=== PATIENT | female | born 1985 | race Caucasian/White ===

== ENCOUNTER 2019-04-03 13:21 | Inpatient (IN) | payer OTHER ==
[2019-04-03 16:24] VITALS: BMI 30.5
--- NOTE | 2019-04-03 18:02 | HP ---
CIWA Score - Admission Criteria OASAS Guidelines: Admission for Medically Managed Detox: Requires at least one of the followin. CIWA greater than 12 2. Seizures within the past 24 hours 3. Delirium tremens within the past 24 hours 4. Hallucinations within the past 24 hours 5. Acute intervention needed for co occurring medical disorder 6. Acute intervention needed for co occurring psychiatric disorder 7. Severe withdrawal that cannot be handled at a lower level of care (continued vomiting, continued diarrhea, abnormal vital signs) requiring intravenous medication and/or fluids 8. Admission ROS S - HPI Allergies/Adverse Reactions: Allergies Allergy/AdvReac Type Severity Reaction Status Date / Time eletriptan [From Relpax] Allergy Severe Elevated Verified 04/03/19 16:09 Blood Pressure haloperidol [From Haldol] Allergy Severe Elevated Verified 04/03/19 16:09 Blood Pressure zolpidem [From Ambien] Allergy Severe Elevated Verified 04/03/19 16:09 Blood Pressure - Ebola screening Have you traveled outside of the country in the last 21 days: No (NN) Have you had contact with anyone from an Ebola affected area: No Patient History - Substances abused Crack Substance route: Inhalation Frequency: No use in 30 days Amount used: ' can't remember'. Age of first use: 33 Date of last use: 04/02/19 Heroin Substance route: Inhalation Frequency: No use in 30 days Amount used: ' I don't recall' Age of first use: 21 Date of last use: 04/02/19 Alcohol Substance route: Oral Frequency: No use in 30 days Amount used: past 2 days only/ unknown amount. Age of first use: 12 Date of last use: 04/02/19 Admission Physical Exam [facility] - Vital Signs Vital Signs: Vital Signs - 24 hr 04/03/19 16:13 Temperature 97 F L Pulse Rate 79 Respiratory 18 Rate Blood Pressure 157/102 H Breathalyzer - Breathalyzer Breathalyzer: 0 Urine Drug Screen - Test Device Lot number: [id number] Expiration date: 10/18/20 - Control Is test valid?: Yes - Results Drug screen NEGATIVE: No Urine drug screen results: CT-Cocaine
--- NOTE | 2019-04-03 20:47 | HP ---
CIWA Score - Admission Criteria OASAS Guidelines: Admission for Medically Managed Detox: Requires at least one of the followin. CIWA greater than 12 2. Seizures within the past 24 hours 3. Delirium tremens within the past 24 hours 4. Hallucinations within the past 24 hours 5. Acute intervention needed for co occurring medical disorder 6. Acute intervention needed for co occurring psychiatric disorder 7. Severe withdrawal that cannot be handled at a lower level of care (continued vomiting, continued diarrhea, abnormal vital signs) requiring intravenous medication and/or fluids 8. Admission ROS S - HPI Chief Complaint: Seeking admission to Rehab. Allergies/Adverse Reactions: Allergies Allergy/AdvReac Type Severity Reaction Status Date / Time eletriptan [From Relpax] Allergy Severe Elevated Verified 04/03/19 16:09 Blood Pressure haloperidol [From Haldol] Allergy Severe Elevated Verified 04/03/19 16:09 Blood Pressure zolpidem [From Ambien] Allergy Severe Elevated Verified 04/03/19 16:09 Blood Pressure History of Present Illness: 34 years old female with 13 years of opioid dependence, 23 years of alcohol dependence and cocaine dependence is seeking admission to Rehab. Patient has been to prior Rehab., last at [facility] and this is her first admission to [facility]. She has medical history of asthma, Diabetes Type 2, hypertension, GERD and psych. history of Bipolar disorder and personality disorder. She denies suicide attempt and suicidal ideation at this time. Exam Limitations: No Limitations - Ebola screening Have you traveled outside of the country in the last 21 days: No (NN) Have you had contact with anyone from an Ebola affected area: No Do you have a fever: No - Review of Systems Constitutional: No Symptoms Reported EENT: reports: No Symptoms Reported Respiratory: reports: No Symptoms reported Cardiac: reports: No Symptoms Reported GI: reports: No Symptoms Reported : reports: No Symptoms Reported Musculoskeletal: reports: No Symptoms Reported Integumentary: reports: No Symptoms Reported Neuro: reports: No Symptoms reported Endocrine: reports: No Symptoms Reported Hematology: reports: No Symptoms Reported Psychiatric: reports: Mood/Affect Appropiate, Orientated x3 Other Systems: Reviewed and Negative Patient History - Patient Medical History Hx Anemia: No Hx Asthma: No Hx Chronic Obstructive Pulmonary Disease (COPD): No Hx Cancer: No Hx Cardiac Disorders: No Hx Congestive Heart Failure: No Hx Hypertension: Yes (Lisinopril) Hx Hypercholesterolemia: No Hx Pacemaker: No HX Cerebrovascular Accident: No Hx Seizures: No Hx Dementia: No Hx Diabetes: Yes (Metformin) Hx Gastrointestinal Disorders: Yes (GERD - Not on medication) Hx Liver Disease: No Hx Genitourinary Disorders: No Hx Sexually Transmitted Disorders: No Hx Renal Disease (ESRD): No Hx Thyroid Disease: No Hx Human Immunodeficiency Virus (HIV): No (Negative 2020) Hx Hepatitis C: No Hx Depression: No Hx Suicide Attempt: No Hx Bipolar Disorder: Yes (Depakote) Hx Schizophrenia: No Other Medical History: Personality disorder - Patient Surgical History Past Surgical History: Yes - PPD History Previous Implant?: Yes Documented Results: Negative w/proof Implanted On Prior [facility] Admission?: No PPD to be Administered?: Yes - Reproductive History Patient is a Female of Child Bearing Age (11 -55 yrs old): Yes Last Menstrual Period: 02/17/19 - Smoking Cessation Smoking history: Current every day smoker Have you smoked in the past 12 months: Yes Aproximately how many cigarettes per day: 20 Hx Chewing Tobacco Use: No Initiated information on smoking cessation: Yes 'Breaking Loose' booklet given: 04/03/19 - Substance & Tx. History Hx Alcohol Use: Yes Hx Substance Use: Yes Substance Use Type: Alcohol, Cocaine, Opiates Hx Substance Use Treatment: Yes ([facility] ) - Substances abused Crack Substance route: Inhalation Frequency: No use in 30 days Amount used: ' can't remember'. Age of first use: 33 Date of last use: 04/02/19 Heroin Substance route: Inhalation Frequency: No use in 30 days Amount used: ' I don't recall' Age of first use: 21 Date of last use: 04/02/19 Alcohol Substance route: Oral Frequency: No use in 30 days Amount used: past 2 days only/ unknown amount. Age of first use: 12 Date of last use: 04/02/19 Admission Physical Exam [facility] - Vital Signs Vital Signs: Vital Signs - 24 hr 04/03/19 16:13 Temperature 97 F L Pulse Rate 79 Respiratory 18 Rate Blood Pressure 157/102 H - Physical General Appearance: Yes: Within Normal Limits HEENTM: Yes: Within Normal Limits Respiratory: Yes: Lungs Clear, Normal Breath Sounds, No Respiratory Distress Neck: Yes: Supple Breast: Yes: Breast Exam Deferred Cardiology: Yes: Regular Rhythm, Regular Rate Abdominal: Yes: Within Normal Limits Genitourinary: Yes: Within Normal Limits Back: Yes: Normal Inspection Musculoskeletal: Yes: Within Normal Limits Extremities: Yes: Normal Inspection Neurological: Yes: Within Normal Limits Integumentary: Yes: Warm Lymphatic: Yes: Within Normal Limits - Diagnostic (1) Alcohol dependence Current Visit: Yes Status: Acute (2) Cocaine dependence Current Visit: Yes Status: Acute (3) Opioid dependence Current Visit: Yes Status: Acute (4) Nicotine dependence Current Visit: Yes Status: Acute (5) GERD (gastroesophageal reflux disease) Current Visit: Yes Status: Acute (6) Type 2 diabetes mellitus without complications Current Visit: Yes Status: Acute (7) Personality disorder Current Visit: Yes Status: Acute (8) Bipolar disorder Current Visit: Yes Status: Acute Cleared for Admission [facility] - Detox or Rehab [facility] Level of Care: Observation Bed Claeared for Rehab Admission: Yes Breathalyzer - Breathalyzer Breathalyzer: 0 Urine Drug Screen - Test Device Lot number: [id number] Expiration date: 10/18/20 - Control Is test valid?: Yes - Results Drug screen NEGATIVE: No Urine drug screen results: CT-Cocaine Inpatient Rehab Admission - Rehab Decision to Admit Inpatient rehab admission?: Yes - Initial Determination Are CD services needed?: No Free of communicable disease: Yes Not in need of hospitalization: Yes - Rehab Admission Criteria Previous failed treatment: Yes Poor recovery environment: Yes Comorbidities: Yes Lacks judgement: No Patient is meeting Inpatient Rehab admission criteria:: Yes
[2019-04-03] MEDS ORDERED: ACETAMINOPHEN 325 MG TABLET (FP) PO PRN (21:09)
[2019-04-03] MEDS ORDERED: MAG HYDROX/AL HYDROX/SIMETH 30 ML UNIT-DOSE CUP PO PRN (21:09)
[2019-04-03] MEDS ORDERED: NICOTINE POLACRILEX 2 MG GUM BUC PRN (21:09)
[2019-04-03] MEDS ORDERED: MENTHOL/PHENOL 1 EACH UD MM PRN (21:09)
[2019-04-03] MEDS ORDERED: P-EPHED 60MG/TRIPROLIDI 2.5MG TABLET PO PRN (21:09)
[2019-04-03] MEDS ORDERED: MAGNESIUM CITRATE 300 ML BOTTLE PO PRN (21:09)
[2019-04-03] MEDS ORDERED: MAGNESIUM HYDROX 2400MG/30ML ORAL SUSPENSION 30 ML CUP PO PRN (21:09)
[2019-04-03] MEDS ORDERED: IBUPROFEN 400 MG TABLET (FP) PO PRN (21:09)
[2019-04-03] MEDS ORDERED: LOPERAMIDE HCL 2 MG CAPSULE PO PRN (21:09)
[2019-04-03] MEDS ORDERED: guaiFENesin 200 MG/10 ML 10 ML UNIT-DOSE CUPS PO PRN (21:09)
[2019-04-03] MEDS ORDERED: MELATONIN 5 MG TABLETS PO PRN (22:00)
[2019-04-03] MEDS ORDERED: THIAMINE HCL 100 MG TABLET (FP) PO SCH (22:00)
[2019-04-03] MEDS ORDERED: TUBERCULIN PPD 5 TU/0.1ML VIAL ID ONE (22:23)
[2019-04-03 23:24] VITALS: BP 119/78; PULSE 68; TEMP 97.7
[2019-04-04] MEDS ORDERED: PRENATAL VITAMINS W/ FOLIC ACID TABLET (FP) PO SCH (10:00)
[2019-04-04] MEDS ORDERED: LISINOPRIL 10 MG TABLET (FP) PO SCH (10:00)
[2019-04-04] MEDS ORDERED: NICOTINE 14 MG/24 HOURS TOPICAL PATCH TD SCH (10:00)
--- NOTE | 2019-04-04 10:07 | EKG ---
Test Reason : Blood Pressure : / mmHG Vent. Rate : 060 BPM Atrial Rate : 060 BPM P-R Int : 156 ms QRS Dur : 098 ms QT Int : 436 ms P-R-T Axes : 014 012 037 degrees QTc Int : 436 ms NORMAL SINUS RHYTHM NORMAL ECG NO PREVIOUS ECGS AVAILABLE Confirmed by SIDDHARTH PECK MD ([id number]) on 04/04/2019 10:07:03 AM Referred By: Confirmed By:SIDDHARTH PECK MD
[2019-04-04 11:53] LABS: HEMATOCRIT 38.1 % (32.4-45.2); MCH 30.5 pg (25.7-33.7); MCHC 34.2 g/dl (32.0-36.0); MEAN CELL VOLUME 89.4 fl (80-96); MEAN PLT VOLUME 7.9 fl (7.5-11.1); PLATELET COUNT 228 K/MM3 (134-434); RBC 4.26 M/mm3 (3.60-5.2); RDW 13.2 % (11.6-15.6); WHITE BLOOD COUNT 6.9 K/mm3 (4.0-10.0)
[2019-04-04 12:08] LABS: ALBUMIN 3.4 g/dl (3.4-5.0); BILIRUBIN,TOTAL 0.3 mg/dL (0.2-1); BLOOD UREA NITROGEN 11.5 mg/dL (7-18); CALCIUM 8.8 mg/dL (8.5-10.1); CREATININE 0.7 mg/dL (0.55-1.3); POTASSIUM 4.3 mmol/L (3.5-5.1); TOT PROT 5.9 g/dl (6.4-8.2)
--- NOTE | 2019-04-04 14:29 | DS ---
[facility] Rehab Discharge Summary - [facility] Rehab Discharge Summary Admission Date: 04/03/19 Discharge Date: 04/04/19 - History Present History: Alcohol dependence, Cocaine dependence Additional Comments: Pt is a 34 y/o female with a hx of FLORIN admitted to rehab and declined to stay in treatment. Pt reports she has a primary care provider at [facility]. Pertinent Past History: HTN DM GERD Bipolar Disorder - Discharge Physical Exam Vital Signs: Vital Signs Temperature 97.7 F 04/03/19 22:25 Pulse Rate 68 04/03/19 22:25 Respiratory Rate 18 04/04/19 07:03 Blood Pressure 119/78 04/03/19 22:25 O2 Sat by Pulse Oximetry (%) Pt declined PE Alert o x 3 nad oob ambulating with steady gait Pertinent Admission Physical Exam Findings: Laboratory Tests 04/03/19 04/04/19 04/04/19 17:37 09:00 09:00 WBC 6.9 RBC 4.26 Hgb 13.0 Hct 38.1 MCV 89.4 MCH 30.5 MCHC 34.2 RDW 13.2 Plt Count 228 MPV 7.9 Sodium 140 Potassium 4.3 Chloride 108 H Carbon Dioxide 30 Anion Gap 2 L BUN 11.5 Creatinine 0.7 Est GFR (CKD-EPI)AfAm 131.94 Est GFR (CKD-EPI)NonAf 113.84 Random Glucose 200 H Calcium 8.8 Total Bilirubin 0.3 AST 9 L ALT 16 Alkaline Phosphatase 112 Total Protein 5.9 L Albumin 3.4 POC Urine HCG, Qual Negative RPR Titer 04/04/19 09:00 WBC RBC Hgb Hct MCV MCH MCHC RDW Plt Count MPV Sodium Potassium Chloride Carbon Dioxide Anion Gap BUN Creatinine Est GFR (CKD-EPI)AfAm Est GFR (CKD-EPI)NonAf Random Glucose Calcium Total Bilirubin AST ALT Alkaline Phosphatase Total Protein Albumin POC Urine HCG, Qual RPR Titer Nonreactive - Treatment Discharge Condition: Discharge condition good Hospital Course: Pt was admitted late on 04/03/19 and declined to continue with rehab today, . Pt requests to sign herself out. Pt unable to engage in rehab treatment. - Medication Discharge Medications: Ambulatory Orders Benztropine Mesylate [Cogentin -] 1 mg PO TID 04/03/19 Buspirone HCl [Buspar -] 15 mg PO BID 04/03/19 Divalproex *ER* [Depakote *ER* -] 500 mg PO BID 04/03/19 Gabapentin [Neurontin -] 100 mg PO TID 04/03/19 Insulin (Novolog) [Novolog -] 1 units SCJ 04/03/19 Lisinopril 10 mg PO DAILY 04/03/19 Albuterol Sulfate Inhaler - [Ventolin Hfa Inhaler -] 2 inh PO Q4H 04/04/19 - Medication-Assisted Treatment (MAT) Medication-Assisted Treatment (MAT): No - Discharge Instructions Diet, activity, other medical instructions: Diet:CLARA Activity: oob ad garcía Other medical instructions:follow up with your primary care provider at [facility] for medical management within 1 week. - Diagnosis (1) Alcohol dependence Current Visit: Yes Status: Chronic Qualifiers: Substance use status: uncomplicated Qualified Code(s): F10.20 - Alcohol dependence, uncomplicated (2) Cocaine dependence Current Visit: Yes Status: Chronic Qualifiers: Substance use status: uncomplicated Qualified Code(s): F14.20 - Cocaine dependence, uncomplicated (3) GERD (gastroesophageal reflux disease) Current Visit: Yes Status: Chronic (4) Nicotine dependence Current Visit: Yes Status: Chronic Qualifiers: Nicotine product type: cigarettes Substance use status: uncomplicated Qualified Code(s): F17.210 - Nicotine dependence, cigarettes, uncomplicated (5) Type 2 diabetes mellitus without complications Current Visit: Yes Status: Chronic Qualifiers: Diabetes mellitus assisted insulin use: unspecified 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
--- NOTE | 2019-04-04 14:40 | PN ---
[facility] Progress Note Note: Addendum:Pt was approached earlier this morning to see her for new pt encounter but patient refused to be seen and walked away. All efforts to engage the patient was unsuccessful as patient ignored inspector automatic typewriter's effort to find out when patient prefers provider to come back for new patient assessment. Vital Signs - 24 hr 04/03/19 04/03/19 04/04/19 16:13 22:25 00:30 Temperature 97 F L 97.7 F Pulse Rate 79 68 Respiratory 18 18 18 Rate Blood Pressure 157/102 H 119/78 04/04/19 04/04/19 03:30 07:03 Temperature Pulse Rate Respiratory 18 18 Rate Blood Pressure Laboratory Tests 04/03/19 04/04/19 04/04/19 17:37 09:00 09:00 WBC 6.9 RBC 4.26 Hgb 13.0 Hct 38.1 MCV 89.4 MCH 30.5 MCHC 34.2 RDW 13.2 Plt Count 228 MPV 7.9 Sodium 140 Potassium 4.3 Chloride 108 H Carbon Dioxide 30 Anion Gap 2 L BUN 11.5 Creatinine 0.7 Est GFR (CKD-EPI)AfAm 131.94 Est GFR (CKD-EPI)NonAf 113.84 Random Glucose 200 H Calcium 8.8 Total Bilirubin 0.3 AST 9 L ALT 16 Alkaline Phosphatase 112 Total Protein 5.9 L Albumin 3.4 POC Urine HCG, Qual Negative RPR Titer 04/04/19 09:00 WBC RBC Hgb Hct MCV MCH MCHC RDW Plt Count MPV Sodium Potassium Chloride Carbon Dioxide Anion Gap BUN Creatinine Est GFR (CKD-EPI)AfAm Est GFR (CKD-EPI)NonAf Random Glucose Calcium Total Bilirubin AST ALT Alkaline Phosphatase Total Protein Albumin POC Urine HCG, Qual RPR Titer Nonreactive Alert o x 3, no s/h/i verbalized. nad oob ambulating with steady gait.
== END 2019-04-04 14:42 | disposition left against medical advice (07) | DRG 770 ==
LOC: YASAS 13:21 → Y3E 21:54
PROVIDERS: ADMIT Neuromusculoskeletal Medicine & OMM; ATTEND Neuromusculoskeletal Medicine & OMM
PROC: HZ42ZZZ Group Counseling for Substance Abuse Treatment, Cognitive-Behavioral (ICD-10-PCS; principal; 2019-04-03)
DX: F10.20 Alcohol dependence, uncomplicated (principal); F11.20 Opioid dependence, uncomplicated; F14.20 Cocaine dependence, uncomplicated; F17.210 Nicotine dependence, cigarettes, uncomplicated; F31.9 Bipolar disorder, unspecified; F60.9 Personality disorder, unspecified; I10 Essential (primary) hypertension; E11.9 Type 2 diabetes mellitus without complications; Z79.4 Long term (current) use of insulin; K21.9 Gastro-esophageal reflux disease without esophagitis; Z88.8 Allergy status to other drugs, medicaments and biological substances
CPT/HCPCS: 36415; 80053; 81025; 85027; 86593; 93005; 93010

== ENCOUNTER 2020-09-03 19:02 | Inpatient (IN) | payer OTHER ==
[2020-09-03 20:34] VITALS: BMI 28.3
[2020-09-03] MEDS ORDERED: IBUPROFEN 400 MG TABLET (FP) PO PRN (21:35)
[2020-09-03] MEDS ORDERED: MAG HYDROX/AL HYDROX/SIMETH 30 ML UNIT-DOSE CUP PO PRN (21:35)
[2020-09-03] MEDS ORDERED: MENTHOL/PHENOL 1 EACH UD MM PRN (21:35)
[2020-09-03] MEDS ORDERED: ONDANSETRON *ODT* 4 MG TABLET SL PRN (21:35)
[2020-09-03] MEDS ORDERED: cloNIDine HCL 0.1 MG TABLET PO PRN (21:35)
[2020-09-03] MEDS ORDERED: MAGNESIUM CITRATE 300 ML BOTTLE PO PRN (21:35)
[2020-09-03] MEDS ORDERED: BISMUTH SUBSALICYLATE 524 MG/30 ML PO PRN (21:35)
[2020-09-03] MEDS ORDERED: ACETAMINOPHEN 325 MG TABLET (FP) PO PRN ×2 (21:35)
[2020-09-03] MEDS ORDERED: NICOTINE POLACRILEX 2 MG GUM BUC PRN (21:35)
[2020-09-03] MEDS ORDERED: METHOCARBAMOL 500 MG TABLET PO PRN (21:35)
[2020-09-03] MEDS ORDERED: MAGNESIUM HYDROX 2400MG/30ML ORAL SUSPENSION 30 ML CUP PO PRN (21:35)
[2020-09-03] MEDS ORDERED: METHADONE HCL 10 MG TABLET (FOR DETOX USE ONLY) PO ONE (21:35)
[2020-09-03] MEDS ORDERED: MELATONIN 5 MG TABLETS PO SCH (22:00)
[2020-09-03] MEDS ORDERED: THIAMINE HCL 100 MG TABLET (FP) PO SCH (22:00)
[2020-09-04 00:18] VITALS: BP 148/78; PULSE 66; TEMP 97.6
[2020-09-04] MEDS: hydrOXYzine PAMOATE 25 MG CAPSULE (FP) PO SCH ×3 (01:13→10:31)
[2020-09-04] MEDS ORDERED: METHADONE HCL 5 MG TABLET (FOR DETOX USE ONLY) ONE (08:55)
[2020-09-04] MEDS ORDERED: METHADONE HCL 10 MG TABLET (FOR DETOX USE ONLY) ONE (08:55)
[2020-09-04] MEDS ORDERED: NICOTINE 21 MG/24 HOURS TOPICAL PATCH TD SCH (10:00)
[2020-09-04] MEDS ORDERED: PRENATAL VITAMINS W/ FOLIC ACID TABLET (FP) PO SCH (10:00)
[2020-09-04] MEDS ORDERED: METHADONE (DETOX) 20 MG, METHADONE (DETOX) 5 MG PO ONE (10:00)
[2020-09-04] MEDS ORDERED: hydrOXYzine PAMOATE 25 MG CAPSULE (FP) PO PRN (13:28)
[2020-09-05] MEDS ORDERED: METHADONE HCL 10 MG TABLET (FOR DETOX USE ONLY) PO ONE (10:00)
[2020-09-06] MEDS ORDERED: METHADONE (DETOX) 10 MG, METHADONE (DETOX) 5 MG PO ONE (10:00)
[2020-09-07] MEDS ORDERED: METHADONE HCL 10 MG TABLET (FOR DETOX USE ONLY) PO ONE (10:00)
[2020-09-08] MEDS ORDERED: METHADONE HCL 5 MG TABLET (FOR DETOX USE ONLY) PO ONE (06:00)
== END 2020-09-04 15:11 | disposition short-term general hospital (02) | DRG 773 ==
LOC: YASAS 19:02 → Y3N 21:11
PROVIDERS: ADMIT Allergy & Immunology; ATTEND Allergy & Immunology
PROC: HZ2ZZZZ Detoxification Services for Substance Abuse Treatment (ICD-10-PCS; principal; 2020-09-03)
DX: F11.23 Opioid dependence with withdrawal (principal); F10.20 Alcohol dependence, uncomplicated; F14.20 Cocaine dependence, uncomplicated; F17.210 Nicotine dependence, cigarettes, uncomplicated; F31.9 Bipolar disorder, unspecified; F60.9 Personality disorder, unspecified; E11.9 Type 2 diabetes mellitus without complications; Z79.4 Long term (current) use of insulin; M54.5 Low back pain; G89.29 Other chronic pain; K21.9 Gastro-esophageal reflux disease without esophagitis; L30.9 Dermatitis, unspecified; L40.9 Psoriasis, unspecified; Z88.8 Allergy status to other drugs, medicaments and biological substances
CPT/HCPCS: 81025; C9803; U0003; U0005

== ENCOUNTER 2022-05-21 22:55 | Emergency (ER) | payer OTHER ==
[2022-05-21 23:07] VITALS: BP 180/130; PULSE 76; RESP 20; TEMP 98.1; BMI 26.4
[2022-05-22] MEDS ORDERED: ACETAMINOPHEN 325 MG TABLET (FP) PO ONE (00:27)
[2022-05-22] MEDS ORDERED: ACETAMINOPHEN 325 MG TABLET (FP) ONE ×2 (00:31→00:33)
[2022-05-22] MEDS ORDERED: ALBUTEROL SO4 2.5/IPRATROPIUM 0.5 INH SOL 3 ML VIAL.NEB. NEB ONE (00:31)
[2022-05-22] MEDS: ALBUTEROL SO4 2.5/IPRATROPIUM 0.5 INH SOL 3 ML VIAL.NEB. NEB SCH ×2 (00:36→00:56)
== END 2022-05-22 01:27 | disposition left against medical advice (07) ==
LOC: JER 22:55
PROC: 3E0F7GC Introduction of Other Therapeutic Substance into Respiratory Tract, Via Natural or Artificial Opening (ICD-10-PCS; principal; 2022-05-21)
DX: F11.20 Opioid dependence, uncomplicated (principal); J45.21 Mild intermittent asthma with (acute) exacerbation; F60.9 Personality disorder, unspecified
CPT/HCPCS: 99283-25

== ENCOUNTER 2022-05-22 07:26 | Emergency (ER) | payer OTHER ==
[2022-05-22 07:37] VITALS: BMI 26.4
[2022-05-22] MEDS: ALBUTEROL SO4 2.5/IPRATROPIUM 0.5 INH SOL 3 ML VIAL.NEB. NEB SCH ×4 (08:00→08:55)
[2022-05-22] MEDS ORDERED: methylPREDNISolone NA SUCC 125 MG/2 ML VIAL IVPUSH ONE (08:16)
[2022-05-22] MEDS ORDERED: SODIUM CHLORIDE 0.9% 1000 ML INFUS.BAG IV ONE (08:23)
[2022-05-22] MEDS ORDERED: methylPREDNISolone NA SUCC 125 MG/2 ML VIAL ONE (08:55)
[2022-05-22] MEDS ORDERED: ACETAMINOPHEN 1000 MG/100 ML BAG IVPB ONE (09:02)
[2022-05-22 09:07] LABS: BASO % 0.3 % (0-2.0); EOS % 1.7 % (0-4.5); HEMATOCRIT 42.3 % (32.4-45.2); HEMOGLOBIN 14.1 GM/dL (10.7-15.3); LYMPH % 30.5 % (8-40); MCH 29.1 pg (25.7-33.7); MCHC 33.4 g/dl (32.0-36.0); MEAN CELL VOLUME 87.1 fl (80-96); NEUT % 58.5 % (42.8-82.8); RBC 4.86 M/mm3 (3.60-5.2); RDW 14.2 % (11.6-15.6)
[2022-05-22] MEDS ORDERED: ACETAMINOPHEN INJECTION 100 ML IVPB ONE (09:08)
[2022-05-22 09:22] LABS: ALBUMIN 3.5 g/dl (3.4-5.0); BLOOD UREA NITROGEN 10.6 mg/dL (7-18); CALCIUM 8.8 mg/dL (8.5-10.1); CHLORIDE 108 mmol/L (98-107); CO2 28 mmol/L (21-32); GLUCOSE,RANDOM 211 mg/dL (74-106); SODIUM 140 mmol/L (136-145)
[2022-05-22 09:25] LABS: CREATININE 0.8 mg/dL (0.55-1.3); SGOT/AST 16 U/L (15-37); SGPT/ALT 25 U/L (13-61)
[2022-05-22 09:27] LABS: BILIRUBIN,TOTAL 0.5 mg/dL (0.2-1); TOT PROT 6.4 g/dl (6.4-8.2)
[2022-05-22 09:28] LABS: ALK PHOS 101 U/L (45-117); ANION GAP 4 MMOL/L (8-16)
[2022-05-22 09:29] LABS: MEAN PLT VOLUME 6.9 fl (7.5-11.1); PLATELET COUNT 359 10^3/uL (134-434)
[2022-05-22 14:15] VITALS: BP 170/83; PULSE 66; RESP 20; TEMP 97.9
== END 2022-05-22 14:19 | disposition home or self-care (01) ==
LOC: JER 07:26
PROC: 3E033NZ Introduction of Analgesics, Hypnotics, Sedatives into Peripheral Vein, Percutaneous Approach (ICD-10-PCS; principal; 2022-05-22)
PROC: 3E033GC Introduction of Other Therapeutic Substance into Peripheral Vein, Percutaneous Approach (ICD-10-PCS; 2022-05-22)
PROC: 3E0F7GC Introduction of Other Therapeutic Substance into Respiratory Tract, Via Natural or Artificial Opening (ICD-10-PCS; 2022-05-22)
PROC: 3E0F7GC Introduction of Other Therapeutic Substance into Respiratory Tract, Via Natural or Artificial Opening (ICD-10-PCS; 2022-05-22)
DX: J45.21 Mild intermittent asthma with (acute) exacerbation (principal)
CPT/HCPCS: 0241U-QW; 36415; 72132-TC; 80053; 84702; 84703; 85025; 99285-25; Q9967

== ENCOUNTER 2022-08-24 14:42 | Inpatient (IN) | payer OTHER ==
[2022-08-24 15:53] VITALS: BMI 28.5
[2022-08-24] MEDS ORDERED: IBUPROFEN 600 MG TABLET (FP) PO PRN (18:09)
[2022-08-24] MEDS ORDERED: NICOTINE 10 MG CARTRIDGE (INHALER) IH PRN (18:09)
[2022-08-24] MEDS ORDERED: BENZOCAINE/MENTHOL (CHLORASEPTIC ) LOZENGE MM PRN (18:09)
[2022-08-24] MEDS ORDERED: LOPERAMIDE HCL 2 MG CAPSULE PO PRN (18:09)
[2022-08-24] MEDS ORDERED: MAGNESIUM HYDROX 2400MG/30ML ORAL SUSPENSION 30 ML CUP PO PRN (18:09)
[2022-08-24] MEDS ORDERED: IBUPROFEN 400 MG TABLET (FP) PO PRN (18:09)
[2022-08-24] MEDS ORDERED: P-EPHED 60MG/TRIPROLIDI 2.5MG TABLET PO PRN (18:09)
[2022-08-24] MEDS ORDERED: POLYETHYLENE GLYCOL (HEALTHYLAX) 3350 17 GM PACKET PO PRN (18:09)
[2022-08-24] MEDS ORDERED: DICYCLOMINE HCL 10 MG CAPSULE PO PRN (18:09)
[2022-08-24] MEDS ORDERED: ONDANSETRON *ODT* 4 MG TABLET SL PRN (18:09)
[2022-08-24] MEDS ORDERED: BENZONATATE 200 MG CAPSULE PO PRN (18:09)
[2022-08-24] MEDS ORDERED: NALOXONE HCL 0.4 MG/ML VIAL IM PRN (18:09)
[2022-08-24] MEDS ORDERED: guaiFENesin 600 MG TABLET.ER (FP) PO PRN (18:09)
[2022-08-24] MEDS ORDERED: BISMUTH SUBSALICYLATE 524 MG/30 ML PO PRN (18:09)
[2022-08-24] MEDS ORDERED: NALOXONE HCL (KLOXXADO) 8 MG SPRAY NS PRN (18:09)
[2022-08-24] MEDS ORDERED: MAG HYDROX/AL HYDROX/SIMETH 30 ML UNIT-DOSE CUP PO PRN (18:09)
[2022-08-24] MEDS: INSULIN SLIDING SCALE (NOVOLOG) 1 VIAL SQ SCH ×2 (20:55→22:37)
[2022-08-24] MEDS: THIAMINE HCL 100 MG TABLET (FP) PO SCH (23:21)
[2022-08-25] MEDS: INSULIN SLIDING SCALE (NOVOLOG) 1 VIAL SQ SCH ×4 (07:45→22:16)
[2022-08-25] MEDS: PRENATAL VITAMINS W/ FOLIC ACID TABLET (FP) PO SCH (10:45)
[2022-08-25] MEDS ORDERED: methaDONE HCL 10 MG TABLET (FOR DETOX USE ONLY) PO ONE (11:56)
[2022-08-25] MEDS ORDERED: ALBUTEROL SO4 0.083% IH SOL 2.5 MG/3 ML VIAL.NEB. NEB PRN (12:11)
[2022-08-25] MEDS: METHOCARBAMOL 500 MG TABLET PO PRN ×2 (12:41→22:20)
[2022-08-25] MEDS: diazePAM 5 MG TABLET PO PRN ×2 (12:42→17:29)
[2022-08-25] MEDS: LISINOPRIL 10 MG TABLET PO SCH (12:42)
[2022-08-25] MEDS: ACETAMINOPHEN 325 MG TABLET (FP) PO PRN (17:08)
[2022-08-25] MEDS: hydrOXYzine PAMOATE 25 MG CAPSULE (FP) PO PRN (17:29)
[2022-08-25] MEDS: ALBUTEROL SO4 HFA INHALER IH PRN ×2 (17:49→22:22)
[2022-08-25] MEDS: MELATONIN 5 MG TABLETS PO PRN (22:13)
[2022-08-25] MEDS: THIAMINE HCL 100 MG TABLET (FP) PO SCH (22:13)
[2022-08-25] MEDS: BUDESONIDE/FORMETEROL FUMARATE 160/4.5 mcg INHALER IH SCH (22:20)
[2022-08-26] MEDS: INSULIN SLIDING SCALE (NOVOLOG) 1 VIAL SQ SCH ×4 (07:08→22:24)
[2022-08-26] MEDS: BUDESONIDE/FORMETEROL FUMARATE 160/4.5 mcg INHALER IH SCH ×2 (10:34→22:25)
[2022-08-26] MEDS: PRENATAL VITAMINS W/ FOLIC ACID TABLET (FP) PO SCH (10:35)
[2022-08-26] MEDS: diazePAM 5 MG TABLET PO PRN ×3 (10:35→22:28)
[2022-08-26] MEDS: LISINOPRIL 10 MG TABLET PO SCH (10:36)
[2022-08-26] MEDS: METHOCARBAMOL 500 MG TABLET PO PRN (10:36)
[2022-08-26] MEDS: GABAPENTIN 100 MG CAPSULE PO SCH ×2 (13:25→22:24)
[2022-08-26] MEDS: hydrOXYzine PAMOATE 25 MG CAPSULE (FP) PO PRN (17:15)
[2022-08-26] MEDS: THIAMINE HCL 100 MG TABLET (FP) PO SCH (22:24)
[2022-08-26] MEDS: MELATONIN 5 MG TABLETS PO PRN (22:24)
[2022-08-26] MEDS: ALBUTEROL SO4 HFA INHALER IH PRN (22:33)
[2022-08-27] MEDS: GABAPENTIN 100 MG CAPSULE PO SCH ×3 (05:55→21:53)
[2022-08-27] MEDS: INSULIN SLIDING SCALE (NOVOLOG) 1 VIAL SQ SCH ×4 (06:12→22:26)
[2022-08-27] MEDS ORDERED: methaDONE HCL 10 MG TABLET (FOR DETOX USE ONLY) PO ONE (10:00)
[2022-08-27] MEDS: BUDESONIDE/FORMETEROL FUMARATE 160/4.5 mcg INHALER IH SCH ×2 (10:23→22:25)
[2022-08-27] MEDS: LISINOPRIL 10 MG TABLET PO SCH (10:24)
[2022-08-27] MEDS: PRENATAL VITAMINS W/ FOLIC ACID TABLET (FP) PO SCH (10:24)
[2022-08-27] MEDS: diazePAM 5 MG TABLET PO PRN ×2 (10:25→21:54)
[2022-08-27] MEDS: METHOCARBAMOL 500 MG TABLET PO PRN (10:25)
[2022-08-27] MEDS: NICOTINE 7 MG/24 HOURS TOPICAL PATCH TD PRN (12:49)
[2022-08-27] MEDS: NICOTINE POLACRILEX 2 MG GUM BUC PRN ×2 (12:50→23:25)
[2022-08-27] MEDS: THIAMINE HCL 100 MG TABLET (FP) PO SCH (21:54)
[2022-08-27] MEDS ORDERED: INSULIN (NOVOLOG) ASPART 100 UNITS/ML 10ML VIAL ONE (22:16)
[2022-08-28] MEDS: GABAPENTIN 100 MG CAPSULE PO SCH ×3 (06:02→22:26)
[2022-08-28] MEDS ORDERED: INSULIN (NOVOLOG) ASPART 100 UNITS/ML 10ML VIAL ONE (06:05)
[2022-08-28] MEDS: INSULIN SLIDING SCALE (NOVOLOG) 1 VIAL SQ SCH ×4 (06:49→22:30)
[2022-08-28] MEDS: LISINOPRIL 10 MG TABLET PO SCH (10:53)
[2022-08-28] MEDS: PRENATAL VITAMINS W/ FOLIC ACID TABLET (FP) PO SCH (10:53)
[2022-08-28] MEDS: BUDESONIDE/FORMETEROL FUMARATE 160/4.5 mcg INHALER IH SCH ×2 (10:53→22:27)
[2022-08-28] MEDS: METHOCARBAMOL 500 MG TABLET PO PRN ×2 (10:54→22:30)
[2022-08-28] MEDS: NICOTINE POLACRILEX 2 MG GUM BUC PRN ×2 (12:20→22:31)
[2022-08-28] MEDS: NICOTINE 7 MG/24 HOURS TOPICAL PATCH TD PRN (12:24)
[2022-08-28] MEDS: ACETAMINOPHEN 325 MG TABLET (FP) PO PRN (13:08)
[2022-08-28] MEDS: THIAMINE HCL 100 MG TABLET (FP) PO SCH (22:26)
[2022-08-28] MEDS: MELATONIN 5 MG TABLETS PO PRN (22:28)
[2022-08-29] MEDS: ACETAMINOPHEN 325 MG TABLET (FP) PO PRN (06:06)
[2022-08-29] MEDS: GABAPENTIN 100 MG CAPSULE PO SCH ×3 (06:07→22:16)
[2022-08-29] MEDS: INSULIN SLIDING SCALE (NOVOLOG) 1 VIAL SQ SCH ×4 (06:44→22:47)
[2022-08-29] MEDS ORDERED: methaDONE HCL 10 MG TABLET (FOR DETOX USE ONLY) PO ONE (10:00)
[2022-08-29] MEDS: PRENATAL VITAMINS W/ FOLIC ACID TABLET (FP) PO SCH (10:43)
[2022-08-29] MEDS: LISINOPRIL 10 MG TABLET PO SCH (10:43)
[2022-08-29] MEDS: BUDESONIDE/FORMETEROL FUMARATE 160/4.5 mcg INHALER IH SCH ×2 (10:44→22:15)
[2022-08-29] MEDS: NICOTINE 7 MG/24 HOURS TOPICAL PATCH TD PRN (10:48)
[2022-08-29] MEDS: NICOTINE POLACRILEX 2 MG GUM BUC PRN ×3 (10:49→22:49)
[2022-08-29] MEDS ORDERED: LISINOPRIL 10 MG TABLET PO SCH (16:00)
[2022-08-29] MEDS: metFORMIN HCL 500 MG TABLET (FP) PO SCH (16:54)
[2022-08-29] MEDS: METHOCARBAMOL 500 MG TABLET PO PRN (20:45)
[2022-08-29] MEDS: THIAMINE HCL 100 MG TABLET (FP) PO SCH (22:16)
[2022-08-29] MEDS: MELATONIN 5 MG TABLETS PO PRN (22:19)
[2022-08-30] MEDS: GABAPENTIN 100 MG CAPSULE PO SCH ×2 (05:42→13:37)
[2022-08-30] MEDS: NICOTINE POLACRILEX 2 MG GUM BUC PRN ×2 (05:45→10:43)
[2022-08-30] MEDS: METHOCARBAMOL 500 MG TABLET PO PRN (05:45)
[2022-08-30] MEDS: INSULIN SLIDING SCALE (NOVOLOG) 1 VIAL SQ SCH ×2 (06:52→11:45)
[2022-08-30] MEDS: metFORMIN HCL 500 MG TABLET (FP) PO SCH (06:53)
[2022-08-30] MEDS: PRENATAL VITAMINS W/ FOLIC ACID TABLET (FP) PO SCH (10:42)
[2022-08-30] MEDS: LISINOPRIL 10 MG TABLET PO SCH (10:42)
[2022-08-30] MEDS: BUDESONIDE/FORMETEROL FUMARATE 160/4.5 mcg INHALER IH SCH (10:42)
[2022-08-30] MEDS: NICOTINE 7 MG/24 HOURS TOPICAL PATCH TD PRN (10:43)
[2022-08-30 14:07] VITALS: BP 120/72; PULSE 72; RESP 18; TEMP 97.3
== END 2022-08-30 14:12 | disposition other institution (70) | DRG 773 ==
LOC: YASAS 14:42 → Y6N 20:22 → UNDOADMIN 20:22
PROVIDERS: ADMIT Allergy & Immunology; ATTEND Surgery
PROC: HZ2ZZZZ Detoxification Services for Substance Abuse Treatment (ICD-10-PCS; principal; 2022-08-24)
DX: F11.23 Opioid dependence with withdrawal (principal); F14.20 Cocaine dependence, uncomplicated; F12.20 Cannabis dependence, uncomplicated; F17.210 Nicotine dependence, cigarettes, uncomplicated; F19.282 Other psychoactive substance dependence with psychoactive substance-induced sleep disorder; F31.9 Bipolar disorder, unspecified; F41.9 Anxiety disorder, unspecified; E11.65 Type 2 diabetes mellitus with hyperglycemia; Z79.84 Long term (current) use of oral hypoglycemic drugs; M54.50 Low back pain, unspecified; L30.9 Dermatitis, unspecified
CPT/HCPCS: 81025; 82962; 83036; 87635

== ENCOUNTER 2022-08-30 14:20 | Inpatient (IN) | payer OTHER ==
[2022-08-30] MEDS ORDERED: ALBUTEROL SO4 HFA INHALER IH PRN (15:06)
[2022-08-30] MEDS: metFORMIN HCL 500 MG TABLET (FP) PO SCH (16:26)
[2022-08-30] MEDS: INSULIN SLIDING SCALE (NOVOLOG) 1 VIAL SQ SCH (16:28)
[2022-08-30] MEDS: BUDESONIDE/FORMETEROL FUMARATE 160/4.5 mcg INHALER IH SCH (21:07)
[2022-08-30] MEDS: GABAPENTIN 100 MG CAPSULE PO SCH (21:08)
[2022-08-30] MEDS ORDERED: levETIRAcetam 500 MG TABLET (FP) PO ONE (22:00)
[2022-08-31] MEDS: GABAPENTIN 100 MG CAPSULE PO SCH ×2 (07:15→15:09)
[2022-08-31] MEDS: metFORMIN HCL 500 MG TABLET (FP) PO SCH (07:16)
[2022-08-31] MEDS ORDERED: INSULIN (NOVOLOG) ASPART 100 UNITS/ML 10ML VIAL ONE (07:18)
[2022-08-31] MEDS: INSULIN SLIDING SCALE (NOVOLOG) 1 VIAL SQ SCH (07:19)
[2022-08-31 08:03] VITALS: BP 124/82; PULSE 73; RESP 18; TEMP 97.3
[2022-08-31] MEDS ORDERED: LISINOPRIL 10 MG TABLET PO SCH (10:00)
[2022-08-31] MEDS: BUDESONIDE/FORMETEROL FUMARATE 160/4.5 mcg INHALER IH SCH (10:57)
[2022-08-31] MEDS ORDERED: AMMONIUM LACTATE 12% LOTION 225 GM BOTTLE TP PRN (13:37)
[2022-08-31] MEDS ORDERED: BENZONATATE 200 MG CAPSULE PO PRN (13:38)
[2022-08-31] MEDS ORDERED: guaiFENesin 600 MG TABLET.ER (FP) PO PRN (13:38)
[2022-08-31] MEDS ORDERED: COLLOIDAL OATMEAL 1 BAR EACH TP PRN (13:38)
[2022-08-31] MEDS ORDERED: METHOCARBAMOL 500 MG TABLET PO PRN (13:39)
[2022-08-31] MEDS ORDERED: NALOXONE HCL 0.4 MG/ML VIAL IVPUSH PRN (13:41)
[2022-08-31] MEDS ORDERED: NICOTINE 10 MG CARTRIDGE (INHALER) IH PRN (13:43)
[2022-08-31] MEDS ORDERED: NALOXONE HCL (KLOXXADO) 8 MG SPRAY NS PRN (13:43)
[2022-08-31] MEDS ORDERED: NICOTINE POLACRILEX 2 MG GUM BC PRN ×2 (13:44→13:45)
[2022-08-31] MEDS ORDERED: LOPERAMIDE HCL 2 MG CAPSULE PO PRN (13:45)
[2022-08-31] MEDS ORDERED: IBUPROFEN 400 MG TABLET (FP) PO PRN (13:45)
[2022-08-31] MEDS ORDERED: BENZOCAINE/MENTHOL (CHLORASEPTIC ) LOZENGE MM PRN (13:45)
[2022-08-31] MEDS ORDERED: MELATONIN 5 MG TABLETS PO PRN (13:45)
[2022-08-31] MEDS ORDERED: MAG HYDROX/AL HYDROX/SIMETH 30 ML UNIT-DOSE CUP PO PRN (13:45)
[2022-08-31] MEDS ORDERED: IBUPROFEN 600 MG TABLET (FP) PO PRN (13:45)
[2022-08-31] MEDS ORDERED: ACETAMINOPHEN 325 MG TABLET (FP) PO PRN (13:45)
[2022-08-31] MEDS ORDERED: hydrOXYzine PAMOATE 25 MG CAPSULE (FP) PO PRN (13:45)
[2022-08-31] MEDS ORDERED: P-EPHED 60MG/TRIPROLIDI 2.5MG TABLET PO PRN (13:45)
[2022-08-31] MEDS ORDERED: MAGNESIUM HYDROX 2400MG/30ML ORAL SUSPENSION 30 ML CUP PO PRN (13:45)
[2022-08-31] MEDS ORDERED: THIAMINE HCL 100 MG TABLET (FP) PO SCH (22:00)
[2022-09-01] MEDS ORDERED: PRENATAL VITAMINS W/ FOLIC ACID TABLET (FP) PO SCH (10:00)
[2022-09-01] MEDS ORDERED: NICOTINE 7 MG/24 HOURS TOPICAL PATCH TD SCH (10:00)
[2022-09-01] MEDS ORDERED: POLYETHYLENE GLYCOL (HEALTHYLAX) 3350 17 GM PACKET PO PRN (13:45)
== END 2022-08-31 16:40 | disposition left against medical advice (07) | DRG 770 ==
LOC: YASAS 14:20 → Y5N 14:25
PROVIDERS: ADMIT Allergy & Immunology; ATTEND Psychiatry & Neurology Pain Medicine
PROC: HZ42ZZZ Group Counseling for Substance Abuse Treatment, Cognitive-Behavioral (ICD-10-PCS; principal; 2022-08-30)
DX: F11.20 Opioid dependence, uncomplicated (principal); F14.20 Cocaine dependence, uncomplicated; F12.20 Cannabis dependence, uncomplicated; F31.9 Bipolar disorder, unspecified; F41.9 Anxiety disorder, unspecified; I10 Essential (primary) hypertension; K21.9 Gastro-esophageal reflux disease without esophagitis; J45.909 Unspecified asthma, uncomplicated; M54.50 Low back pain, unspecified; G89.29 Other chronic pain
CPT/HCPCS: 82962